=== PATIENT | female | born 1955 | race Two or more races ===

== ENCOUNTER 2024-09-19 06:11 | Inpatient (IN) | payer OTHER, MEDICAID ==
[~2024-09-19] VITALS: Ht 154.9 cm; Wt 73.2 kg
[~2024-09-19 06:11] MED LIST: DAPA1TAB4 PO; FURO40TA4 PO; GLIP10TA9 PO; SEMA4INJ SC; ZOFR4T SL
--- NOTE | 2024-09-19 06:20 | ED.PDOC ---
General HPI Comments 67 year old female presents to the ED via EMS with a chief complaint of dysuria onset 3 days. Patient has been experiencing dysuria, fever, chills, fatigue, generalized weakness for the past 3 days, an episode of nausea/vomiting this morning. Denies any chest pain, shortness of breath, hematuria, hematemesis, dizziness, headache, blurry vision. No other symptoms or modifying factors present at this time. Time Seen by MD: 06:10 Reviewed notes: Medications, Allergies Allergies: Coded Allergies: Tramadol (Verified Allergy, Unknown, 09/19/24) Information Source: Patient, Emergency Med Personnel Severity: Moderate Timing: Days Duration: Since onset Prehospital treatment: None Onset: Spontaneous Symptoms: Dysuria History of: None associated signs and symptoms: Fever, Nausea, Vomiting, Dysuria Past Medical History PAST MEDICAL HISTORY: Denies Surgical History: Denies all surgeries LAUNDRY AIDE History: No Pertinent LAUNDRY AIDE History Social History Smoker: Non-Smoker Alcohol: Denies ETOH Use Drugs: Denies Drug Use Lives In: Home Constitutional: reports: chills, fatigue, fever; denies: diaphoresis, malaise, sweats, weakness, others EENTM: denies: blurred vision, double vision, ear bleeding, ear discharge, ear drainage, ear pain, ear ringing, eye pain, eye redness, hearing loss, mouth pain, mouth swelling, nasal discharge, nose bleeding, nose congestion, nose pain, photophobia, tearing, throat pain, throat swelling, voice changes, others Respiratory: denies: cough, hemoptysis, orthopnea, SOB at rest, shortness of breath, SOB with excertion, stridor, wheezing, others Cardiovascular: denies: chest pain, dizzy spells, diaphoresis, Dyspnea on exertion, edema, irregular heart beat, left arm pain, lightheadedness, palpitations, PND, syncope, others Gastrointestinal: reports: nausea, vomiting; denies: abdomen distended, abdominal pain, blood streaked bowels, constipated, diarrhea, dysphagia, difficulty swallowing, hematemesis, melena, poor appetite, poor fluid intake, rectal bleeding, rectal pain, others Genitourinary: reports: dysuria; denies: abnormal vagina bleeding, burning, dyspareunia, flank pain, frequency, hematuria, incontinence, pain, , vagina discharge, urgency, others Neurological: denies: dizziness, fainting, headache, left sided numbness, left sided weakness, numbness, paresthesia, pre-existing deficit, right sided numbness, right sided weakness, seizure, speech problems, tingling, tremors, weakness, others Musculoskeletal: denies: back pain, gout, joint pain, joint swelling, muscle pain, muscle stiffness, neck pain, others Integumetry: denies: bruises, change in color, change in hair/nails, dryness, laceration, lesions, lumps, rash, wounds, others Allergic/Immunocompromised: denies: Difficulty Healing, Frequent Infections, Hives, Itching, others Hematologic/Lymphatic: denies: anemia, blood clots, easy bleeding, easy bruising, swollen glands, others Endocrine: denies: excessive hunger, excessive sweating, excessive thirst, excessive urination, flushing, intolerance to cold, intolerance to heat, unexplained weight gain, unexplained weight loss, others Psychiatric: denies: anxiety, bipolar disorder, depression, hopeless, panic disorder, schizophrenia, sleepless, suicidal, others All Other Systems: Reviewed and Negative Physical Exam General Appearance: Other (febrile) HEENT: Normal ENT Inspection, Pharynx Normal, TMs Normal Neck: Full Range of Motion, Non-Tender, Normal, Normal Inspection Respiratory: Chest Non-Tender, Lungs Clear, No Accessory Muscle Use, No Respiratory Distress, Normal Breath Sounds Cardiovascular: No Edema, No Gallop, Tachycardia Breast Exam: Deferred Gastrointestinal: No Organomegaly, Non Tender, No Pulsatile Mass, Normal Bowel Sounds, Soft Genitalia: Deferred Pelvic: Deferred Rectal: Deferred Extremities: No calf tenderness, Normal capillary refill, Normal inspection, Normal range of motion, Non-tender, No pedal edema Musculoskeletal : Apperance: Normal Neurologic: Alert, manager lan II-XII nml as Tested, No Motor Deficits, Normal Affect, Normal Mood, No Sensory Deficits Cerebellar Function: Normal Reflexes: Normal Skin: Dry, Normal Color, Warm Lymphatic: No Adenopathy Was a procedure done? Was a procedure done?: No Differential Diagnosis Kidney stone (Female): N/A Kidney stone (Male): N/A Penile/Scrotal: N/A Urinary Problem (Male): N/A Urinary Problem (Female): Pyelonephritis, Urinary retention, Urolithiasis, UTI X-Ray, Labs, Meds, VS Vital Signs Date Time Temp Pulse Resp B/P (MAP) Pulse Ox O2 Delivery O2 Flow Rate FiO2 09/19/24 07:30 98 16 93 Room Air* 0 21 09/19/24 07:30 98.7 98 16 93/60 (71) 93 98.7 09/19/24 06:22 99.0 119 33 143/66 (91) 95 99.0 Lab Test 09/19/24 06:57 Range/Units White Blood Count 2.0 L 4.4-10.8 10^3/uL Red Blood Count 4.52 4.0-5.20 10^6/uL Hemoglobin 13.7 12.2-16.2 g/dL Hematocrit 39.3 36.0-46.0 % Mean Corpuscular Volume 87.0 80.0-100.0 fL Mean Corpuscular Hemoglobin 30.3 28.0-32.0 pg Mean Corpuscular Hemoglobin Concent 34.9 32.0-36.0 g/dL Red Cell Distribution Width 15.0 H 11.8-14.3 % Platelet Count 66 L 140-450 10^3/uL Mean Platelet Volume 9.0 6.9-10.8 fL Neutrophils (%) (Auto) 86.9 H 37.0-80.0 % Lymphocytes (%) (Auto) 8.0 L 10.0-50.0 % Monocytes (%) (Auto) 4.1 0.0-12.0 % Eosinophils (%) (Auto) 0.5 0.0-7.0 % Basophils (%) (Auto) 0.5 0.0-2.0 % Neutrophils # (Auto) 1.7 1.6-8.6 10 ^3/uL Lymphocytes # (Auto) 0.2 L 0.4-5.4 10 ^3/uL Monocytes # (Auto) 0.1 0-1.3 10 ^3/uL Eosinophils # (Auto) 0 0-0.8 10 ^3/uL Basophils # (Auto) 0 0-0.2 10 ^3/uL Nucleated Red Blood Cells 0.2 % Prothrombin Time 11.4 9.3-11.8 sec Prothrombin Time INR 1.08 0.9-1.15 Activated Partial Thromboplast Time 23.8 L 24.5-34.5 SEC Sodium Level 139 136-145 mmol/L Potassium Level 3.6 3.5-5.1 mmol/L Chloride Level 106 98-107 mmol/L Carbon Dioxide Level 20 20-31 mmol/L Anion Gap 13 5-15 Blood Urea Nitrogen 21 9-23 mg/dL Creatinine 1.73 H 0.550-1.02 mg/dL Glomerular Filtration Rate Calc 32 >90 mL/min BUN/Creatinine Ratio 12.1 10.0-20.0 Serum Glucose 169 H 74-106 mg/dL Lactic Acid Level 2.2 *H 0.4-2.0 mmol/L Calcium Level 9.2 8.7-10.4 mg/dL Total Bilirubin 1.9 H 0.2-1.0 mg/dL Aspartate Amino Transferase (AST) 31 <34 U/L Alanine Aminotransferase (ALT) 31 7-40 U/L Alkaline Phosphatase 101 46-116 U/L Total Protein 7.0 5.7-8.2 g/dL Albumin 4.2 3.2-4.8 g/dL Current Medications Medications (Trade) Dose Ordered Sig/Triston Route Start Time Stop Time Status Last Admin Vancomycin HCl 200 ml @ 200 mls/hr ONCE ONCE IV 09/19/24 06:15 09/19/24 07:14 DC 09/19/24 08:18 Cefepime HCl 50 ml @ 12.5 mls/hr NOW IV 09/19/24 06:15 09/19/24 08:08 Lactated Ringer's 2,000 ml @ 1,000 mls/hr Q2H ONCE IV 09/19/24 06:15 09/19/24 08:14 DC 09/19/24 08:19 Lactated Ringer's 1,000 ml @ 1,000 mls/hr Q1H ONCE IV 09/19/24 08:45 09/19/24 09:44 09/19/24 08:42 [place] [id number] Ph: [phone] DIAGNOSTIC IMAGING Diagnostic Imaging Report : [id number] Signed PATIENT: AMY CABRALES ACCT: [id number] UNIT: [id number] : 1955 LOC: ER ROOM / BED: / AGE / SEX: 68 / F ADM STATUS: REG ER SERVICE 0638 ORDERING PHYSICIAN: ALEXANDRE BOJORQUEZ MD PROCEDURE(s): CXRP - CHEST PORTABLE REASON: fever ORDER NUMBER(s): [id number], ACCESSION NUMBER(s): [id number] CHEST RADIOGRAPH Indication: Fever Technique: Single frontal view of the chest was obtained Comparison: None FINDINGS: Lines and Tubes: None Lungs: No focal consolidation. Pleura: No effusion. No pneumothorax. Cardiomediastinal contours: Unremarkable Bones: No acute osseous abnormality. IMPRESSION: 1. No acute cardiopulmonary disease. ATED BY: GENEVIEVE HERRERA MD DICTATED DATE/TIME: 09/19/24703 SIGNED BY: GENEVIEVE HERRERA MD SIGNED DATE/TIME: 09/19/24703 CC: Time of 1ST Reevaluation: 06:40 Reevaluation 1ST: Unchanged Time of 2ND Reevaluation: 08:59 (After receiving fluids the patient is a vitals have began to improve. We will reassess after completion.) Patient Education/Counseling: Diagnosis, Treatment, Prognosis Family Education/Counseling: No Family Present SEPSIS Sepsis Screen Physician Orders Urinalysis (09/19/24 06:12) Chest Portable (09/19/24 06:38) Accucheck (09/19/24 06:12) Blood Culture (09/19/24 06:12) Cefepime 1gm/ 50ml (Maxipime 1gm/50ml) (09/19/24 06:15) Notify Md If Map <65 Or Bp<90 (09/19/24 06:12) If Map<65 Start Vasopressor (09/19/24 06:12) Lactated Ringer's (09/19/24 08:45) Straightcath If Unable To Void (09/19/24 08:56) Vital Signs Date Time Temp Pulse Resp B/P (MAP) Pulse Ox O2 Delivery O2 Flow Rate FiO2 09/19/24 07:30 98 16 93 Room Air* 0 21 09/19/24 07:30 98.7 98 16 93/60 (71) 93 98.7 09/19/24 06:22 99.0 119 33 143/66 (91) 95 99.0 Laboratory Tests Test 09/19/24 06:57 Lactic Acid Level 2.2 mmol/L (0.4-2.0) *H White Blood Count 2.0 10^3/uL (4.4-10.8) L Medications Medications Dose Ordered Sig/Triston Route Start Time Stop Time Status Last Admin Dose Admin Cefepime HCl 50 ml @ 12.5 mls/hr NOW IV 09/19/24 06:15 09/19/24 08:08 Lactated Ringer's 1,000 ml @ 1,000 mls/hr Q1H ONCE IV 09/19/24 08:45 09/19/24 09:44 09/19/24 08:42 Lactated Ringer's 2,000 ml @ 1,000 mls/hr Q2H ONCE IV 09/19/24 06:15 09/19/24 08:14 DC 09/19/24 08:19 Vancomycin HCl 200 ml @ 200 mls/hr ONCE ONCE IV 09/19/24 06:15 09/19/24 07:14 DC 09/19/24 08:18 Departure 1 Departure Time of Disposition: 08:57 (Patient presents with concern for sepsis. We will empirically cover patient with antibiotics fluids and the patient for further workup and expert consultation.) Impression: Primary Impression: Sepsis Qualified Codes: A41.9 - Sepsis, unspecified organism; R65.20 - Severe sepsis without septic shock; G72.81 - Critical illness myopathy Additional Impression: Generalized weakness Disposition: 09 ADMITTED INPATIENT Admit to: Med Surg Condition: Guarded Critical Care Note Critical Care Time?: Yes Critical care comment: Concern for sepsis Authorized and Performed by: Alexandre Bojorquez MD Total critical care time: Approximately 44 minutes Due to a high probability of clinically significant, life threatening deterioration, the patient required my highest level of preparedness to intervene emergently and I personally spent this critical care time directly and personally managing the patient. This critical care time included obtaining a history; examining the patient; pulse oximetry; ordering and review of studies; arranging urgent treatment with development of a management plan; evaluation of patient's response to treatment; frequent reassessment; and, discussions with other providers. This critical care time was performed to assess and manage the high probability of imminent, life-threatening deterioration that could result in multi-organ failure. It was exclusive of separately billable procedures and treating other patients and teaching time. Please see my other sections and the rest of the note for further information on patient assessment and treatment. Stability Stability form required: No I personally scribed for ALEXANDRE BOJORQUEZ MD ([email or web address]) on 09/19/24 at 06:20. Electronically submitted by Jemma Narvaez ([email or web address]). I personally scribed for ALEXANDRE BOJORQUEZ MD ([email or web address]) on 09/19/24 at 07:21. E lectronically submitted by Jemma Narvaez ([email or web address]). ALEXANDRE BOJORQUEZ MD Sep 19, 2024 06:20
--- NOTE | 2024-09-19 07:07 | DVH ---
CHEST RADIOGRAPH Indication: Fever Technique: Single frontal view of the chest was obtained Comparison: None FINDINGS: Lines and Tubes: None Lungs: No focal consolidation. Pleura: No effusion. No pneumothorax. Cardiomediastinal contours: Unremarkable Bones: No acute osseous abnormality. IMPRESSION: 1. No acute cardiopulmonary disease.
[2024-09-19 07:15] LABS: Basophils # (auto) 0 10 ^3/uL (0-0.2); Basophils % (auto) 0.5 % (0.0-2.0); Eosinophils # (auto) 0 10 ^3/uL (0-0.8); Eosinophils % (auto) 0.5 % (0.0-7.0); Hematocrit 39.3 % (36.0-46.0); Hemoglobin 13.7 g/dL (12.2-16.2); Lymphocytes # (auto) 0.2 10 ^3/uL (0.4-5.4); Mean Corpuscular Hemoglobin 30.3 pg (28.0-32.0); Mean Corpuscular Hgb Conc. 34.9 g/dL (32.0-36.0); Monocytes # (auto) 0.1 10 ^3/uL (0-1.3); Monocytes % (auto) 4.1 % (0.0-12.0); Neutrophils # (auto) 1.7 10 ^3/uL (1.6-8.6); Neutrophils % (auto) 86.9 % (37.0-80.0); Nucleated Red Blood Cells % 0.2 %; Platelet Count (auto) 66 10^3/uL (140-450); Red Blood Cells 4.52 10^6/uL (4.0-5.20)
[2024-09-19 07:29] LABS: INR 1.08 (0.9-1.15); Partial Thromboplastin Time 23.8 SEC (24.5-34.5); Prothrombin Time 11.4 sec (9.3-11.8)
[2024-09-19 07:30] VITALS: PULSE 98; RESP 16; O2SAT 93
[2024-09-19 07:32] LABS: Alanine Aminotransferase 31 U/L (7-40); Albumin 4.2 g/dL (3.2-4.8); Alkaline Phosphatase 101 U/L (46-116); Anion Gap 13 (5-15); Aspartate Aminotransferase 31 U/L (<34); BUN/Creatinine Ratio 12.1 (10.0-20.0); Blood Urea Nitrogen 21 mg/dL (9-23); Calcium 9.2 mg/dL (8.7-10.4); Carbon Dioxide 20 mmol/L (20-31); Chloride 106 mmol/L (98-107); Potassium 3.6 mmol/L (3.5-5.1); Sodium 139 mmol/L (136-145)
[2024-09-19 07:39] LABS: Bilirubin, Total 1.9 mg/dL (0.2-1.0); Glucose 169 mg/dL (74-106)
[2024-09-19 07:42] LABS: Lactic Acid w/Reflex 2.2 mmol/L (0.4-2.0)
[2024-09-19] MEDS: CEFEPIME 1GM/ 50ML 50 ML IV SCH ×2 (08:08→22:25)
[2024-09-19] MEDS: VANCOMYCIN 1GM/200ML PM 200 ML IV ONE (08:18)
[2024-09-19] MEDS: LACTATED RINGER'S 2,000 ML IV ONE (08:19)
[2024-09-19] MEDS ORDERED: SODIUM CHLORIDE 0.9% 1,000 ML IV ONE (08:30)
[2024-09-19] MEDS: LACTATED RINGER'S 1,000 ML IV ONE (08:42)
[2024-09-19 10:15] LABS: Urine Bacteria None Seen /hpf (None Seen)
[2024-09-19 10:24] LABS: Urine Blood 3+ /uL (Negative); Urine Clarity Ex.Turbid (Clear); Urine Color Light-Orange (Yellow); Urine Protein, UAD 2+ (Negative); Urine Specific Gravity 1.014 (1.001-1.035); Urine Squamous Epithelial Cell None Seen /hpf (<5); Urine Urobilinogen Normal (Negative); Urine WBC 1841 /HPF (0-5); Urine WBC Clumps PRESENT /hpf (None Seen)
[2024-09-19] MEDS ORDERED: MORPHINE SULFATE INJ 2 MG/ml SYRG IV PRN (12:15)
[2024-09-19] MEDS ORDERED: HYDROcodone-ACET 5/325MG TAB PO PRN (12:15)
[2024-09-19] MEDS ORDERED: ONDANSETRON HCL 4 MG/2 ML VIAL IV PRN (12:15)
[2024-09-19] MEDS ORDERED: NITROGLYCERIN 0.4 MG SL TAB SL PRN (12:15)
[2024-09-19] MEDS ORDERED: VANCOMYCIN PER PHARMACY 0 MG IV SCH (12:15)
[2024-09-19] MEDS ORDERED: FOLI-119 PO (12:19)
[2024-09-19] MEDS ORDERED: LISI20TA56 PO (12:19)
[2024-09-19] MEDS ORDERED: MAGN241.6 PO (12:19)
--- NOTE | 2024-09-19 12:32 | DVHHP2 ---
History of Present Illness Reason for Visit: Dysuria History of Present Illness Beata Márquez is a 68-year-old female with past medical history of hypertension, diabetes, breast cancer status post right mastectomy in 2010, and C-sections x4 who presents to the ED with dysuria, generalized weakness, fever, chills, fatigue, and flu-like symptoms x3 days. Patient states that she ambulated to the room just a little bit ago. She also denies nausea and vom iting as well as cough. Patient states that she lives at home with her daughter as well as smokes 1 cigarette per week, denies use of drugs or drinking alcohol. Patient denies any recent trauma or injury, recent sick contacts, recent travels, recent ingestion of spoiled food, abdominal pain, nausea, vomiting, diarrhea, chest pain, shortness of breath, lightheadedness, dizziness, h ematemesis, melena, hematuria, or hematochezia. Cardiovascular: HTN Endocrine: Diabetes Past Medical History Breast cancer Past Surgical History: Mastectomy (Right ) Family History: None Smoke: <1 pack per day ALCOHOL: none Drugs: None Lives: with Family Domestic Violence: Neg Review of Systems Constitutional: Yes: Fever, Chills, Other (Fatigue) Genitourinary: Dysuria Allergies: Coded Allergies: Tramadol (Verified Allergy, Unknown, 09/19/24) Medications Current Medications Medications Dose Ordered Sig/Triston Route Start Time Stop Time Status Last Admin Dose Admin Cefepime HCl 50 ml @ 12.5 mls/hr NOW IV 09/19/24 06:15 09/19/24 08:08 12.5 MLS/HR Acetaminophen/ Hydrocodone Bitart 1 tab Q4HP PRN PO 09/19/24 12:15 UNV Exam Vital Signs Vital Signs Date Time Temp Pulse Resp B/P (MAP) Pulse Ox O2 Delivery O2 Flow Rate FiO2 09/19/24 07:30 98 16 93 Room Air* 0 21 09/19/24 07:30 98.7 93/60 (71) 98.7 General Appearance: Alert, Oriented X3, Cooperative, No acute distress HEENT: Atraumatic, PERRLA, EOMI, Mucous membr. moist/pink Respiratory: Clear to auscultation, Normal air movement Cardiovascular: Normal S1, Normal S2 Abdominal: Normal bowel sounds, Soft Extremities: No clubbing, No cyanosis, No edema, Normal pulses Skin: No significant lesion Neuro: Normal speech, Strength at 5/5 X4 ext, Normal tone, Sensation intact Psych/Mental Status: Mental status NL, Mood NL Labs/Xrays Labs Test 09/19/24 10:15 09/19/24 10:00 09/19/24 06:57 Range/Units Lactic Acid Level 1.3 0.4-2.0 mmol/L Urine Color Light-orange Yellow Urine Clarity Ex.turbid Clear Urine pH 6.0 5.0-9.0 Urine Specific [place] 1.014 1.001-1.035 Urine Protein 2+ H Negative Urine Ketones Negative Negative Urine Blood 3+ H Negative /uL Urine Nitrite 1+ H Negative Urine Bilirubin Negative Negative Urine Urobilinogen Normal Negative mg/dL Urine Leukocyte Esterase 3+ Negative /uL Urine RBC 50 0 - 4 /hpf Urine WBC Clumps Present None Seen /hpf Urine Microscopic WBC 1841 H 0-5 /HPF Urine Squamous Epithelial Cells None seen <5 /hpf Urine Bacteria None seen None Seen /hpf Urine Glucose 3+ H Normal mg/dL White Blood Count 2.0 L 4.4-10.8 10^3/uL Red Blood Count 4.52 4.0-5.20 10^6/uL Hemoglobin 13.7 12.2-16.2 g/dL Hematocrit 39.3 36.0-46.0 % Mean Corpuscular Volume 87.0 80.0-100.0 fL Mean Corpuscular Hemoglobin 30.3 28.0-32.0 pg Mean Corpuscular Hemoglobin Concent 34.9 32.0-36.0 g/dL Red Cell Distribution Width 15.0 H 11.8-14.3 % Platelet Count 66 L 140-450 10^3/uL Mean Platelet Volume 9.0 6.9-10.8 fL Neutrophils (%) (Auto) 86.9 H 37.0-80.0 % Lymphocytes (%) (Auto) 8.0 L 10.0-50.0 % Monocytes (%) (Auto) 4.1 0.0-12.0 % Eosinophils (%) (Auto) 0.5 0.0-7.0 % Basophils (%) (Auto) 0.5 0.0-2.0 % Neutrophils # (Auto) 1.7 1.6-8.6 10 ^3/uL Lymphocytes # (Auto) 0.2 L 0.4-5.4 10 ^3/uL Monocytes # (Auto) 0.1 0-1.3 10 ^3/uL Eosinophils # (Auto) 0 0-0.8 10 ^3/uL Basophils # (Auto) 0 0-0.2 10 ^3/uL Nucleated Red Blood Cells 0.2 % Prothrombin Time 11.4 9.3-11.8 sec Prothrombin Time INR 1.08 0.9-1.15 Activated Partial Thromboplast Time 23.8 L 24.5-34.5 SEC Sodium Level 139 136-145 mmol/L Potassium Level 3.6 3.5-5.1 mmol/L Chloride Level 106 98-107 mmol/L Carbon Dioxide Level 20 20-31 mmol/L Anion Gap 13 5-15 Blood Urea Nitrogen 21 9-23 mg/dL Creatinine 1.73 H 0.550-1.02 mg/dL Glomerular Filtration Rate Calc 32 >90 mL/min BUN/Creatinine Ratio 12.1 10.0-20.0 Serum Glucose 169 H 74-106 mg/dL Calcium Level 9.2 8.7-10.4 mg/dL Total Bilirubin 1.9 H 0.2-1.0 mg/dL Aspartate Amino Transferase (AST) 31 <34 U/L Alanine Aminotransferase (ALT) 31 7-40 U/L Alkaline Phosphatase 101 46-116 U/L Total Protein 7.0 5.7-8.2 g/dL Albumin 4.2 3.2-4.8 g/dL CHEST RADIOGRAPH Indication: Fever Technique: Single frontal view of the chest was obtained Comparison: None FINDINGS: Lines and Tubes: None Lungs: No focal consolidation. Pleura: No effusion. No pneumothorax. Cardiomediastinal contours: Unremarkable Bones: No acute osseous abnormality. IMPRESSION: 1. No acute cardiopulmonary disease. Assessment/Plan Assessment/Plan Assessment Dysuria with fever and chills likely due to UTI rule out sepsis Hypertension Leukopenia Thrombocytopenia Hyperbilirubinemia SANIA Diabetes type 2 Tobacco use History of breast cancer status post right mastectomy [facility] [address] [facility] History of C-sections x4 Plan Admit to [facility] IV antibiotics-vancomycin + cefepime LR 3 L given ED Blood cultures Chest x-ray noted UA PT/PTT Urine bacterial culture Antipyretics Antiemetics Pain management Hemoglobin A1c ISS and Accu-Cheks Influenza test Diet Home medications reconciled DVT prophylaxis-SCDs PUD prophylaxis-not indicated no history of GERD or GI bleed Discussed plan of care with patient and nurse Counseled patient on cessation of tobacco use Plan discussed with: Patient My Orders Orders - ALEN BLOOM Procedure Category Date Status Time Admit ADMIT 09/19/24 Transmitted 12:12 Allergies JAIRO 09/19/24 In Process 12:12 Code Status CODE 09/19/24 Transmitted 12:12 Hydrocodone-Acet PHA 09/19/24 Logged 5/325mg Tab (Badger 12:15 Ondansetron Hcl PHA 09/19/24 Logged (Zofran) 12:15 Complete Blood Count LAB 09/20/24 Verified 04:00 Comprehensive LAB 09/20/24 Verified Metabolic Panel 04:00 Cardiac DIET 09/19/24 Transmitted Diet-2gna,Lofat,Lochol Lunch Acetaminophen Tablet PHA 09/19/24 Logged (Tylenol Tablet) 12:15 Sequential JAIRO 09/19/24 In Process Compression Device Nitroglycerin PHA 09/19/24 Logged Sublingual (Ntrostat 12:15 Morphine Sulfate PHA 09/19/24 Logged Injection 12:15 Stat Ekg For Chest [facility] [place] 09/19/24 In Process Pain 12:12 Notify Md Of Changes [facility] [place] 09/19/24 In Process From Base 12:12 Marketing Teacher For [facility] [place] 09/19/24 In Process 24 Hours 12:12 Emergency Dysrhythmia [facility] [place] 09/19/24 In Process Protocol 12:12 Rhythm Strips Once [facility] [place] 09/19/24 In Process Every Shift 12:12 Oxygen By Nasal RT 09/19/24 Transmitted Cannula 12:12 Vancomycin Per PHA 09/19/24 Logged Pharmacy 12:15 Cefepime 1gm/ 50ml PHA 09/19/24 Logged (Maxipime 1gm/50ml) 14:00 Rapid Influenza A&B LAB 09/19/24 Transmitted 12:12 (Nf) Folic Acid PHA 09/20/24 Transmitted 10:00 (Nf) Magnesium Oxide PHA 09/20/24 Transmitted (Mg Supplement (Mag 10:00 Furosemide Injection PHA 09/20/24 Verified (Lasix Injection) 10:00 Date of Service: Sep 19, 2024 Billing Provider: ALEN BLOOM Common Visit Codes: [id number] INP/OBS CARE (HIGH) ALEN BLOOM Sep 19, 2024 12:32
[2024-09-19 14:48] LABS: Rapid Influenza A Negative (Negative); Rapid Influenza B Negative (Negative)
[2024-09-19 15:18] VITALS: BP 93/49; PULSE 89; RESP 19; TEMP 98.4; O2SAT 93
[2024-09-19 16:21] VITALS: RESP 18; O2SAT 98
[2024-09-19 20:00] VITALS: PULSE 83; RESP 18; O2SAT 97
[2024-09-19 21:00] VITALS: BP 105/58; PULSE 83; RESP 17; TEMP 97.7; O2SAT 97
[2024-09-20] VITALS (7 sets, daily range): BP systolic 102–110; BP diastolic 52–61; PULSE 76–84; RESP 16–19; TEMP 97.4–98.3; O2SAT 93–98
[2024-09-20] MEDS: ACETAMINOPHEN 325 MG TAB PO PRN (01:11)
[2024-09-20 06:05] LABS: Basophils # (auto) 0 10 ^3/uL (0-0.2); Hemoglobin 12.2 g/dL (12.2-16.2); Lymphocytes # (auto) 0.8 10 ^3/uL (0.4-5.4); Monocytes # (auto) 0.7 10 ^3/uL (0-1.3); Nucleated Red Blood Cells % 0.1 %
[2024-09-20 06:11] LABS: Basophils % (auto) 0.4 % (0.0-2.0); Eosinophils # (auto) 0.1 10 ^3/uL (0-0.8); Eosinophils % (auto) 1.3 % (0.0-7.0); Lymphocytes % (auto) 13.7 % (10.0-50.0); Mean Corpuscular Hemoglobin 30.1 pg (28.0-32.0); Mean Corpuscular Hgb Conc. 34.8 g/dL (32.0-36.0); Mean Corpuscular Volume 86.5 fL (80.0-100.0); Monocytes % (auto) 11.4 % (0.0-12.0); Neutrophils # (auto) 4.4 10 ^3/uL (1.6-8.6); Neutrophils % (auto) 73.2 % (37.0-80.0); Platelet Count (auto) 55 10^3/uL (140-450); Red Blood Cells 4.04 10^6/uL (4.0-5.20); Red Cell Distribution Width 14.6 % (11.8-14.3); White Blood Cell 6.1 10^3/uL (4.4-10.8)
[2024-09-20 06:19] LABS: Alanine Aminotransferase 23 U/L (7-40); Alkaline Phosphatase 78 U/L (46-116); Anion Gap 11 (5-15); BUN/Creatinine Ratio 16.3 (10.0-20.0); Calcium 9.1 mg/dL (8.7-10.4); Carbon Dioxide 22 mmol/L (20-31); Sodium 140 mmol/L (136-145); Total Protein 6.1 g/dL (5.7-8.2)
[2024-09-20 06:20] LABS: Albumin 3.7 g/dL (3.2-4.8); Aspartate Aminotransferase 25 U/L (<34)
[2024-09-20 06:24] LABS: Bilirubin, Total 1.3 mg/dL (0.2-1.0); Blood Urea Nitrogen 26 mg/dL (9-23); Chloride 107 mmol/L (98-107); Glucose 129 mg/dL (74-106)
[2024-09-20] MEDS ORDERED: SODIUM CHLORIDE 0.9% 1,000 ML IV ONE (09:30)
[2024-09-20] MEDS: MAGNESIUM OXIDE 400 MG TAB PO SCH (10:17)
[2024-09-20] MEDS: SODIUM CHLORIDE 0.9% 1,000 ML IV ONE (10:17)
[2024-09-20] MEDS: FOLIC ACID 1 MG TAB PO SCH (10:17)
[2024-09-20] MEDS: FUROSEMIDE 40 MG/4 ML VIAL IV SCH (12:03)
--- NOTE | 2024-09-20 12:06 | DVHPNRES ---
Progress Note Date Seen: Sep 20, 2024 Resident Creating Document: JEFFREY GARY RESIDENT Has the PT tested + for MRSA If YES, has PT been informed?: No Medical Necessity Reason Pt with a Central, PICC or Fol: No Subjective Review of Systems Beata Márquez is a 68-year-old female with past medical history of hypertension, diabetes, breast cancer status post right mastectomy in 2010, and C-sections x4 who presents to the ED with dysuria, generalized weakness, fever, chills, fatigue, and flu-like symptoms x3 days. Patient states that she ambulated to the room just a little bit ago. She also denies nausea and vomiting as well as cough. Patient states that she lives at home with her daughter as well as smokes 1 cigarette per week, denies use of drugs or drinking alcohol. Patient denies any recent trauma or injury, recent sick contacts, recent travels, recent ingestion of spoiled food, abdominal pain, nausea, vomiting, diarrhea, chest pain, shortness of breath, lightheadedness, dizziness, hematemesis, melena, hematuria, or hematochezia. 09/20/2024: UA: LE 3+, WBC 1841, 1+ nitrates, creat 1.6, abdominal pain improves, no fevers, AB will be downgraded to ceftriaxone, vanco + cefepime will be dc, 1 extra LT of fluids given Objective vital signs Vital Sign Date Time Temp Pulse Resp B/P (MAP) Pulse Ox O2 Delivery O2 Flow Rate FiO2 09/20/24 12:03 102/55 09/20/24 08:02 83 18 97 Room Air* 0 21 09/20/24 05:00 98.3 98.3 Total Intake and Output 09/19/24 09/19/24 09/20/24 15:00 23:00 07:00 Intake Total 2250 ml 480 ml 700 ml Balance 2250 ml 480 ml 700 ml medications Current Medications Medications Dose Ordered Sig/Triston Route Start Time Stop Time Status Last Admin Dose Admin Cefepime HCl 50 ml @ 12.5 mls/hr NOW IV 09/19/24 06:15 09/19/24 08:08 12.5 MLS/HR Acetaminophen/ Hydrocodone Bitart 1 tab Q4HP PRN PO 09/19/24 12:15 Ondansetron HCl 4 mg Q4HP PRN IV 09/19/24 12:15 Acetaminophen 650 mg Q6HP PRN PO 09/19/24 12:15 09/20/24 01:11 650 MG Nitroglycerin 0.4 mg Q5MINP PRN SL 09/19/24 12:15 Morphine Sulfate 2 mg Q30M PRN IV 09/19/24 12:15 Vancomycin HCl 0 ml @ 0 mls/hr UD IV 09/19/24 12:15 Cefepime HCl 50 ml @ 12.5 mls/hr Q12HR IV 09/19/24 22:00 09/20/24 10:17 12.5 MLS/HR Folic Acid 1 mg DAILY PO 09/20/24 10:00 09/20/24 10:17 1 MG Magnesium Oxide 400 mg DAILY PO 09/20/24 10:00 09/20/24 10:17 400 MG Furosemide 40 mg DAILY IV 09/20/24 10:00 09/20/24 12:03 40 MG Examination General Appearance: Alert, Oriented X3, Cooperative, No acute distress HEENT: Atraumatic, PERRLA, EOMI, Mucous membr. moist/pink Respiratory: Clear to auscultation, Normal air movement Cardiovascular: Normal S1, Normal S2 Abdominal: Normal bowel sounds, Soft Extremities: No clubbing, No cyanosis, No edema, Normal pulses Skin: No significant lesion Neuro: Normal speech, Strength at 5/5 X4 ext, Normal tone, Sensation intact Psych/Mental Status: Mental status NL, Mood NL laboratory and microbiology Laboratory Tests 09/20/24 05:12 Test 09/20/24 05:12 Range/Units Serum Glucose 129 H 74-106 mg/dL Microbiology Date/Time Source Procedure Growth Status 09/19/24 06:57 Blood Blood Culture - Preliminary Resulted Problem List/Assessment/Plan Problem List/Assessment/Plan #Sepsis due to complicated UTI #Hypertension #Leukopenia, resolved: possible due to sepsis #Thrombocytopenia #Hyperbilirubinemia, resolving #SANIA due to VMN #Diabetes type 2 #Tobacco use #History of breast cancer status post right mastectomy in 2010 at [facility] #History of C-sections x4 Plan Cardiac diet IV ceftriaxone IV fluids given Blood cultures pending Chest x-ray normal UA: UTI Urine bacterial culture: pending Tylenol Hemoglobin A1c ISS and Accu-Cheks Influenza test Home medications reconciled DVT prophylaxis-SCDs, no lovenox due to Thrombocytopenia PUD prophylaxis-not indicated no history of GERD or GI bleed Discussed plan of care with patient and nurse Counseled patient on cessation of tobacco use Case discussed with Dr Bass Plan discussed with: Patient, Other Date of Service: Sep 20, 2024 Billing Provider: ELMER BASS MD Common Visit Codes: [id number] INP/OBS CARE(HIGH) JEFFREY GARY RESIDENT Sep 20, 2024 12:06 ELMER BASS MD Sep 30, 2024 20:44
[2024-09-20] MEDS ORDERED: DEXTROSE (50%) 50ML SYRG IV PRN (15:15)
[2024-09-20] MEDS: cefTRIAXone 1GM/50ML D5W 50 ML IV SCH (16:16)
[2024-09-20] MEDS ORDERED: InsuLIN REG 1unit/0.01ml Soln (100units/ml) SC SCH (17:00)
[2024-09-20] MEDS ORDERED: ACCU-CHEK COMFORT CURVE STRIP VI SCH (17:00)
[2024-09-21] VITALS (7 sets, daily range): BP systolic 119–134; BP diastolic 60–78; PULSE 76–83; RESP 16–19; TEMP 96.2–100; O2SAT 95–99
[2024-09-21 07:43] LABS: Basophils # (auto) 0 10 ^3/uL (0-0.2); Basophils % (auto) 0.4 % (0.0-2.0); Eosinophils # (auto) 0 10 ^3/uL (0-0.8); Eosinophils % (auto) 0.8 % (0.0-7.0); Hematocrit 36.5 % (36.0-46.0); Hemoglobin 12.5 g/dL (12.2-16.2); Lymphocytes # (auto) 0.7 10 ^3/uL (0.4-5.4); Lymphocytes % (auto) 14.2 % (10.0-50.0); Mean Corpuscular Hemoglobin 29.7 pg (28.0-32.0); Mean Corpuscular Hgb Conc. 34.2 g/dL (32.0-36.0); Mean Corpuscular Volume 86.9 fL (80.0-100.0); Monocytes # (auto) 0.4 10 ^3/uL (0-1.3); Monocytes % (auto) 8.4 % (0.0-12.0); Neutrophils # (auto) 3.9 10 ^3/uL (1.6-8.6); Neutrophils % (auto) 76.2 % (37.0-80.0); Nucleated Red Blood Cells % 0.1 %; Platelet Count (auto) 59 10^3/uL (140-450); Red Cell Distribution Width 14.6 % (11.8-14.3); White Blood Cell 5.1 10^3/uL (4.4-10.8)
[2024-09-21 08:00] LABS: Potassium 3.7 mmol/L (3.5-5.1); Sodium 144 mmol/L (136-145)
[2024-09-21 08:01] LABS: Anion Gap 12 (5-15); Carbon Dioxide 22 mmol/L (20-31)
[2024-09-21 08:05] LABS: Chloride 110 mmol/L (98-107)
[2024-09-21 08:06] LABS: BUN/Creatinine Ratio 16.2 (10.0-20.0); Blood Urea Nitrogen 22 mg/dL (9-23)
[2024-09-21 08:09] LABS: Glucose 135 mg/dL (74-106)
--- NOTE | 2024-09-21 11:39 | DVHPNRES ---
Progress Note Date Seen: Sep 21, 2024 Resident Creating Document: RICHY AGOSTO JOSLYN Has the PT tested + for MRSA If YES, has PT been informed?: No Medical Necessity Reason Pt with a Central, PICC or Fol: No Subjective Review of Systems Patient seen and examined at the bedside. Patient is feeling better since admission, does not active complaint including abdominal pain, urgency or frequency. Patient reports: No new complaints, Feels better Changes from previous H/P or p: Changes Objective vital signs Vital Sign Date Time Temp Pulse Resp B/P (MAP) Pulse Ox O2 Delivery O2 Flow Rate FiO2 09/21/24 09:33 119/67 09/21/24 09:00 100.0 77 18 97 100.0 09/21/24 08:09 Room Air* 0 21 Total Intake and Output 09/20/24 09/20/24 09/21/24 15:00 23:00 07:00 Intake Total 750 ml 700 ml Balance 750 ml 700 ml medications Current Medications Medications Dose Ordered Sig/Triston Route Start Time Stop Time Status Last Admin Dose Admin Acetaminophen/ Hydrocodone Bitart 1 tab Q4HP PRN PO 09/19/24 12:15 Acetaminophen 650 mg Q6HP PRN PO 09/19/24 12:15 09/21/24 00:37 650 MG Folic Acid 1 mg DAILY PO 09/20/24 10:00 09/21/24 09:33 1 MG Magnesium Oxide 400 mg DAILY PO 09/20/24 10:00 09/21/24 09:34 400 MG Furosemide 40 mg DAILY IV 09/20/24 10:00 09/21/24 09:33 40 MG Ceftriaxone Sodium 50 ml @ 100 mls/hr DAILY@09 IV 09/20/24 15:15 09/21/24 09:15 100 MLS/HR Examination General Appearance: Alert, Oriented X3, Cooperative, No acute distress HEENT: Atraumatic, PERRLA, EOMI, Mucous membrane moist/pink Respiratory: Clear to auscultation, Normal air movement Cardiovascular: Regular rate, Normal S1, Normal S2, No murmurs, no chest wall tenderness Abdominal: Normal bowel sounds, Soft, No tenderness, No hepatospenomegaly, No masses Extremities: No clubbing, No cyanosis, No edema, Normal pulses, No tenderness/swelling Skin: No rashes, No breakdown, No significant lesion Neuro: Normal gait, Normal speech, Strength at 5/5 X4 ext, Normal tone, Sensation intact, Cranial nerves 3-12 NL, Reflexes 2+ Psych/Mental Status: Mental status NL, Mood NL laboratory and microbiology Laboratory Tests 09/21/24 07:16 Test 09/21/24 07:16 Range/Units Serum Glucose 135 H 74-106 mg/dL Microbiology Date/Time Source Procedure Growth Status 09/19/24 10:00 Voided Urine Urine Culture - Preliminary Resulted 09/19/24 06:57 Blood Blood Culture - Preliminary Resulted Labs and/or images reviewed: Labs reviewed by me, Image(s) reviewed by me Problem List/Assessment/Plan Problem List/Assessment/Plan #Sepsis due to complicated UTI #Hypertension #Leukopenia, resolved: possible due to sepsis #Thrombocytopenia #Hyperbilirubinemia, resolving #SANIA due to VMN #Diabetes type 2 #Tobacco use #History of breast cancer status post right mastectomy in 2010 at [facility] #History of C-sections x4 Plan Cardiac diet IV ceftriaxone IV fluids given Blood cultures pending Chest x-ray normal UA: UTI Urine bacterial culture: pending Tylenol Hemoglobin A1c ISS and Accu-Cheks Influenza test Home medications reconciled DVT prophylaxis-SCDs, no lovenox due to Thrombocytopenia PUD prophylaxis-not indicated no history of GERD or GI bleed Discussed plan of care with patient and nurse Counseled patient on cessation of tobacco use Blood culture preliminary result shows Gram-negative rods, we are repeating blood culture to get negative blood culture before discharge Case discussed with Dr Bass Plan discussed with: Patient, Other (RN) Date of Service: Sep 21, 2024 Billing Provider: ELMER BASS MD Common Visit Codes: [id number] INP/OBS CARE(HIGH) MARYDEBBIEONELIAYISSELFRANSISCA RESDIENT Sep 21, 2024 11:39 ELMER BASS MD Sep 30, 2024 20:50
[2024-09-22] VITALS (8 sets, daily range): BP systolic 109–136; BP diastolic 60–82; PULSE 75–88; RESP 17–20; TEMP 96.8–99; O2SAT 96–98
[2024-09-22 06:42] LABS: Basophils # (auto) 0 10 ^3/uL (0-0.2); Basophils % (auto) 0.3 % (0.0-2.0); Eosinophils # (auto) 0 10 ^3/uL (0-0.8); Eosinophils % (auto) 0.6 % (0.0-7.0); Hematocrit 34.7 % (36.0-46.0); Hemoglobin 12.2 g/dL (12.2-16.2); Lymphocytes # (auto) 0.6 10 ^3/uL (0.4-5.4); Mean Corpuscular Hemoglobin 30.1 pg (28.0-32.0); Mean Corpuscular Hgb Conc. 35.1 g/dL (32.0-36.0); Mean Corpuscular Volume 85.8 fL (80.0-100.0); Monocytes # (auto) 0.3 10 ^3/uL (0-1.3); Monocytes % (auto) 8.3 % (0.0-12.0); Neutrophils % (auto) 74.8 % (37.0-80.0); Platelet Count (auto) 65 10^3/uL (140-450); Red Blood Cells 4.04 10^6/uL (4.0-5.20); Red Cell Distribution Width 14.5 % (11.8-14.3)
[2024-09-22 06:48] LABS: Anion Gap 12 (5-15); Carbon Dioxide 22 mmol/L (20-31); Chloride 106 mmol/L (98-107); Potassium 3.6 mmol/L (3.5-5.1); Sodium 140 mmol/L (136-145)
[2024-09-22 06:55] LABS: BUN/Creatinine Ratio 15.3 (10.0-20.0); Blood Urea Nitrogen 19 mg/dL (9-23); Glucose 127 mg/dL (74-106)
--- NOTE | 2024-09-22 13:22 | DVHPNRES ---
Progress Note Date Seen: Sep 22, 2024 Resident Creating Document: JEFFREY GARY RESIDENT Has the PT tested + for MRSA If YES, has PT been informed?: No Medical Necessity Reason Pt with a Central, PICC or Fol: No Subjective Review of Systems Beata Márquez is a 68-year-old female with past medical history of hypertension, diabetes, breast cancer status post right mastectomy in 2010, and C-sections x4 who presents to the ED with dysuria, generalized weakness, fever, chills, fatigue, and flu-like symptoms x3 days. Patient states that she ambulated to the room just a little bit ago. She also denies nausea and vomiting as well as cough. Patient states that she lives at home with her daughter as well as smokes 1 cigarette per week, denies use of drugs or drinking alcohol. Patient denies any recent trauma or injury, recent sick contacts, recent travels, recent ingestion of spoiled food, abdominal pain, nausea, vomiting, diarrhea, chest pain, shortness of breath, lightheadedness, dizziness, hematemesis, melena, hematuria, or hematochezia. 09/20/2024: UA: LE 3+, WBC 1841, 1+ nitrates, creat 1.6, abdominal pain improves, no fevers, AB will be downgraded to ceftriaxone, vanco + cefepime will be dc, 1 extra LT of fluids given 09/21/2024: blood culture positive for ecoli 09/22/2024: no fevers, continue IV AB until blood culture negative Objective vital signs Vital Sign Date Time Temp Pulse Resp B/P (MAP) Pulse Ox O2 Delivery O2 Flow Rate FiO2 09/22/24 09:45 128/70 09/22/24 09:00 99.0 80 18 96 99.0 09/22/24 08:00 Room Air* 0 21 Total Intake and Output 09/21/24 09/21/24 09/22/24 15:00 23:00 07:00 Intake Total 680 ml 1240 ml Output Total 680 ml Balance 0 ml 1240 ml medications Current Medications Medications Dose Ordered Sig/Triston Route Start Time Stop Time Status Last Admin Dose Admin Acetaminophen/ Hydrocodone Bitart 1 tab Q4HP PRN PO 09/19/24 12:15 Acetaminophen 650 mg Q6HP PRN PO 09/19/24 12:15 09/21/24 00:37 650 MG Folic Acid 1 mg DAILY PO 09/20/24 10:00 09/22/24 09:43 1 MG Magnesium Oxide 400 mg DAILY PO 09/20/24 10:00 09/22/24 09:43 400 MG Furosemide 40 mg DAILY IV 09/20/24 10:00 09/22/24 09:45 40 MG Ceftriaxone Sodium 50 ml @ 100 mls/hr DAILY@09 IV 09/20/24 15:15 09/22/24 09:43 100 MLS/HR Examination General Appearance: Alert, Oriented X3, Cooperative, No acute distress HEENT: Atraumatic, PERRLA, EOMI, Mucous membr. moist/pink Respiratory: Clear to auscultation, Normal air movement Cardiovascular: Normal S1, Normal S2 Abdominal: Normal bowel sounds, Soft Extremities: No clubbing, No cyanosis, No edema, Normal pulses Skin: No significant lesion Neuro: Normal speech, Strength at 5/5 X4 ext, Normal tone, Sensation intact Psych/Mental Status: Mental status NL, Mood NL laboratory and microbiology Laboratory Tests 09/22/24 05:37 Test 09/22/24 05:37 Range/Units Serum Glucose 127 H 74-106 mg/dL Microbiology Date/Time Source Procedure Growth Status 09/19/24 10:00 Voided Urine Urine Culture - Final Complete 09/19/24 06:57 Blood Blood Culture - Final Escherichia coli Complete Problem List/Assessment/Plan Problem List/Assessment/Plan #Sepsis due to bacteremia and complicated UTI #Bacteremia due to ecoli #Hypertension #Leukopenia, resolved: possible due to sepsis #Thrombocytopenia #Hyperbilirubinemia, resolving #SANIA due to VMN #Diabetes type 2 controlled #Tobacco use #History of breast cancer status post right mastectomy in 2010 at [facility] #History of C-sections x4 Plan Cardiac diet Blood culture positive: e coli 09/19/24 New blood cultures withdrawn yesterday IV ceftriaxone IV fluids given Blood cultures pending Chest x-ray normal UA: UTI Urine bacterial culture: pending Tylenol Hemoglobin A1c 5.5 Influenza test neg Home medications reconciled DVT prophylaxis-SCDs, no lovenox due to Thrombocytopenia PUD prophylaxis-not indicated no history of GERD or GI bleed Discussed plan of care with patient and nurse Counseled patient on cessation of tobacco use Case discussed with Dr Bass Plan discussed with: Patient, Other Date of Service: Sep 22, 2024 Billing Provider: ELMER BASS MD Common Visit Codes: [id number] INP/OBS CARE(HIGH) JEFFREY GARY RESIDENT Sep 22, 2024 13:22 ELMER BASS MD Sep 30, 2024 21:09
[2024-09-23] VITALS (8 sets, daily range): BP systolic 107–158; BP diastolic 55–70; PULSE 74–83; RESP 16–20; TEMP 97.2–98.2; O2SAT 94–97
[2024-09-23 05:57] LABS: Chloride 101 mmol/L (98-107); Potassium 3.7 mmol/L (3.5-5.1); Sodium 137 mmol/L (136-145)
[2024-09-23 05:58] LABS: Anion Gap 12 (5-15); Carbon Dioxide 24 mmol/L (20-31)
[2024-09-23 06:04] LABS: BUN/Creatinine Ratio 18.3 (10.0-20.0)
[2024-09-23 06:05] LABS: Blood Urea Nitrogen 26 mg/dL (9-23); Glucose 183 mg/dL (74-106)
[2024-09-23] MEDS: SODIUM CHLORIDE 0.9% 1,000 ML IV ONE (09:32)
--- NOTE | 2024-09-23 15:31 | DVHPNRES ---
Progress Note Date Seen: Sep 23, 2024 Resident Creating Document: JEFFREY GARY RESIDENT Has the PT tested + for MRSA If YES, has PT been informed?: No Medical Necessity Reason Pt with a Central, PICC or Fol: No Subjective Review of Systems Beata Márquez is a 68-year-old female with past medical history of hypertension, diabetes, breast cancer status post right mastectomy in 2010, and C-sections x4 who presents to the ED with dysuria, generalized weakness, fever, chills, fatigue, and flu-like symptoms x3 days. Patient states that she ambulated to the room just a little bit ago. She also denies nausea and vomiting as well as cough. Patient states that she lives at home with her daughter as well as smokes 1 cigarette per week, denies use of drugs or drinking alcohol. Patient denies any recent trauma or injury, recent sick contacts, recent travels, recent ingestion of spoiled food, abdominal pain, nausea, vomiting, diarrhea, chest pain, shortness of breath, lightheadedness, dizziness, hematemesis, melena, hematuria, or hematochezia. 09/20/2024: UA: LE 3+, WBC 1841, 1+ nitrates, creat 1.6, abdominal pain improves, no fevers, AB will be downgraded to ceftriaxone, vanco + cefepime will be dc, 1 extra LT of fluids given 09/21/2024: blood culture positive for ecoli 09/22/2024: no fevers, continue IV AB until blood culture negative 09/23/2024: blood cultures prelim negative 48h, order for HH IV AB placed Objective vital signs Vital Sign Date Time Temp Pulse Resp B/P (MAP) Pulse Ox O2 Delivery O2 Flow Rate FiO2 09/23/24 13:00 98.0 74 20 107/55 (72 94 98.0 09/23/24 08:00 Room Air* 0 21 Total Intake and Output 09/22/24 09/22/24 09/23/24 15:00 23:00 07:00 Intake Total 1500 ml 1840 ml Balance 1500 ml 1840 ml medications Current Medications Medications Dose Ordered Sig/Triston Route Start Time Stop Time Status Last Admin Dose Admin Acetaminophen/ Hydrocodone Bitart 1 tab Q4HP PRN PO 09/19/24 12:15 Acetaminophen 650 mg Q6HP PRN PO 09/19/24 12:15 09/23/24 04:11 650 MG Folic Acid 1 mg DAILY PO 09/20/24 10:00 09/23/24 09:30 1 MG Magnesium Oxide 400 mg DAILY PO 09/20/24 10:00 09/23/24 09:30 400 MG Ceftriaxone Sodium 50 ml @ 100 mls/hr DAILY@09 IV 09/20/24 15:15 09/23/24 09:30 100 MLS/HR Examination General Appearance: Alert, Oriented X3, Cooperative, No acute distress HEENT: Atraumatic, PERRLA, EOMI, Mucous membr. moist/pink Respiratory: Clear to auscultation, Normal air movement Cardiovascular: Normal S1, Normal S2 Abdominal: Normal bowel sounds, Soft Extremities: No clubbing, No cyanosis, No edema, Normal pulses Skin: No significant lesion Neuro: Normal speech, Strength at 5/5 X4 ext, Normal tone, Sensation intact Psych/Mental Status: Mental status NL, Mood NL laboratory and microbiology Laboratory Tests 09/23/24 05:13 09/22/24 05:37 Test 09/23/24 05:13 Range/Units Serum Glucose 183 H 74-106 mg/dL Microbiology Date/Time Source Procedure Growth Status 09/21/24 13:20 Blood Blood Culture - Preliminary NO GROWTH AFTER 48 HOURS OF INCUBATION. Resulted 09/19/24 10:00 Voided Urine Urine Culture - Final Complete Problem List/Assessment/Plan Problem List/Assessment/Plan #Sepsis due to bacteremia and complicated UTI #Bacteremia due to ecoli #Hypertension #Leukopenia, resolved: possible due to sepsis #Thrombocytopenia #Hyperbilirubinemia, resolving #SANIA due to VMN #Diabetes type 2 controlled #Tobacco use #History of breast cancer status post right mastectomy in 2010 at [facility] #History of C-sections x4 Plan Cardiac diet Blood culture positive: e coli 09/19/24 New blood cultures withdrawn yesterday IV ceftriaxone IV fluids given Blood cultures pending Chest x-ray normal UA: UTI Urine bacterial culture: pending Tylenol Hemoglobin A1c 5.5 Influenza test neg Home medications reconciled DVT prophylaxis-SCDs, no lovenox due to Thrombocytopenia PUD prophylaxis-not indicated no history of GERD or GI bleed Discussed plan of care with patient and nurse Counseled patient on cessation of tobacco use 09/23/2024: blood cultures prelim negative 48h, order for HH IV AB placed Case discussed with Dr Bass Plan discussed with: Patient, Other (rn) My Orders My Orders Orders - JEFFREY GARY RESIDENT Procedure Category Date Status Time * Secondary Spanish Teacher CONS 09/23/24 Transmitted Consult Insert Midline ORDERS 09/23/24 Transmitted 12:44 Dietary Evaluation Review Recommendations by RD: Dietary education by RD Comments: 1) Encourage optimal PO intake 2) Refer to outpatient RD/CDCES for weight management 3) Follow-up with cardiology 4) Continue to monitor I&O, labs, and skin integrity Expected Outcomes/Goals: 1) appetite and labs to improve 2) f/u in 3-5 days Date of Service: Sep 23, 2024 Billing Provider: ELMER BASS MD Common Visit Codes: [id number] INP/OBS CARE(HIGH) JEFFREY GARY RESIDENT Sep 23, 2024 15:31 ELMER BASS MD Sep 30, 2024 21:17
[2024-09-24 01:00] VITALS: BP 153/79; PULSE 81; RESP 18; TEMP 98.5; O2SAT 96
[2024-09-24 05:00] VITALS: BP 139/98; PULSE 86; RESP 18; TEMP 98.8; O2SAT 98
[2024-09-24 08:00] VITALS: PULSE 78; RESP 18
[2024-09-24 08:47] VITALS: BP 160/85; PULSE 78; RESP 16; TEMP 97.8; O2SAT 98
[2024-09-24] MEDS: LISINOPRIL 20 MG TAB PO SCH (10:22)
[2024-09-24 13:00] VITALS: BP_SYST 116; BP_SYST 151; BP_DIAS 75; PULSE 73; PULSE 77; RESP 16; TEMP 98; TEMP 98.2; O2SAT 94; O2SAT 98
--- NOTE | 2024-09-27 13:41 | DVHDSRES ---
Discharge Summary Date of Admission Resident Creating Document: JEFFREY GARY RESIDENT Sep 19, 2024 at 12:12 Date of Discharge: Sep 24, 2024 Admitting Diagnosis #Sepsis due to bacteremia and complicated UTI resolved Labs/Diagnostic Data: Laboratory Results Test 09/23/24 05:13 09/22/24 05:37 09/21/24 07:16 09/20/24 05:12 Sodium Level 137 mmol/L (136-145) Potassium Level 3.7 mmol/L (3.5-5.1) Chloride Level 101 mmol/L (98-107) Carbon Dioxide Level 24 mmol/L (20-31) Anion Gap 12 (5-15) Blood Urea Nitrogen 26 mg/dL (9-23) Creatinine 1.42 mg/dL (0.550-1.02) Glomerular Filtration Rate Calc 40 mL/min (>90) BUN/Creatinine Ratio 18.3 (10.0-20.0) Serum Glucose 183 mg/dL (74-106) Calcium Level 9.0 mg/dL (8.7-10.4) White Blood Count 4.0 10^3/uL (4.4-10.8) Red Blood Count 4.04 10^6/uL (4.0-5.20) Hemoglobin 12.2 g/dL (12.2-16.2) Hematocrit 34.7 % (36.0-46.0) Mean Corpuscular Volume 85.8 fL (80.0-100.0) Mean Corpuscular Hemoglobin 30.1 pg (28.0-32.0) Mean Corpuscular Hemoglobin Concent 35.1 g/dL (32.0-36.0) Red Cell Distribution Width 14.5 % (11.8-14.3) Platelet Count 65 10^3/uL (140-450) Mean Platelet Volume 9.8 fL (6.9-10.8) Neutrophils (%) (Auto) 74.8 % (37.0-80.0) Lymphocytes (%) (Auto) 16.0 % (10.0-50.0) Monocytes (%) (Auto) 8.3 % (0.0-12.0) Eosinophils (%) (Auto) 0.6 % (0.0-7.0) Basophils (%) (Auto) 0.3 % (0.0-2.0) Neutrophils # (Auto) 3.0 10 ^3/uL (1.6-8.6) Lymphocytes # (Auto) 0.6 10 ^3/uL (0.4-5.4) Monocytes # (Auto) 0.3 10 ^3/uL (0-1.3) Eosinophils # (Auto) 0 10 ^3/uL (0-0.8) Basophils # (Auto) 0 10 ^3/uL (0-0.2) Nucleated Red Blood Cells 0.0 % Troponin I High Sensitivity 3 ng/L (</=34) B-Type Natriuretic Peptide 207.16 pg/mL (0-100) Hemoglobin A1c 5.5 % A1C (<5.7) Total Bilirubin 1.3 mg/dL (0.2-1.0) Aspartate Amino Transferase (AST) 25 U/L (<34) Alanine Aminotransferase (ALT) 23 U/L (7-40) Alkaline Phosphatase 78 U/L (46-116) Total Protein 6.1 g/dL (5.7-8.2) Albumin 3.7 g/dL (3.2-4.8) Random Vancomycin Level 6.8 ug/mL (5-10) Test 09/19/24 12:57 09/19/24 10:15 09/19/24 10:00 09/19/24 06:57 Influenza Type A Antigen Negative (Negative) Influenza Type B Antigen Negative (Negative) Lactic Acid Level 1.3 mmol/L (0.4-2.0) Urine Color Light-orange (Yellow) Urine Clarity Ex.turbid (Clear) Urine pH 6.0 (5.0-9.0) Urine Specific Provencal 1.014 (1.001-1.035) Urine Protein 2+ (Negative) Urine Ketones Negative (Negative) Urine Blood 3+ /uL (Negative) Urine Nitrite 1+ (Negative) Urine Bilirubin Negative (Negative) Urine Urobilinogen Normal mg/dL (Negative) Urine Leukocyte Esterase 3+ /uL (Negative) Urine RBC 50 /hpf (0 - 4) Urine WBC Clumps Present /hpf (None Seen) Urine Microscopic WBC 1841 /HPF (0-5) Urine Squamous Epithelial Cells None seen /hpf (<5) Urine Bacteria None seen /hpf (None Seen) Urine Glucose 3+ mg/dL (Normal) Prothrombin Time 11.4 sec (9.3-11.8) Prothrombin Time INR 1.08 (0.9-1.15) Activated Partial Thromboplast Time 23.8 SEC (24.5-34.5) Other Laboratory Tests 09/23/24 05:13 09/22/24 05:37 Brief Hx & Hospital Course: Beata Márquez is a 68-year-old female with past medical history of hypertension, diabetes, breast cancer status post right mastectomy in 2010, and C-sections x4 who presents to the ED with dysuria, generalized weakness, fever, chills, fatigue, and flu-like symptoms x3 days. Patient states that she ambulated to the room just a little bit ago. She also denies nausea and vomiting as well as cough. Patient states that she lives at home with her daughter as well as smokes 1 cigarette per week, denies use of drugs or drinking alcohol. Patient denies any recent trauma or injury, recent sick contacts, recent travels, recent ingestion of spoiled food, abdominal pain, nausea, vomiting, diarrhea, chest pain, shortness of breath, lightheadedness, dizziness, hematemesis, melena, hematuria, or hematochezia. Hospital course 09/20/2024: UA: LE 3+, WBC 1841, 1+ nitrates, creat 1.6, abdominal pain improves, no fevers, AB will be downgraded to ceftriaxone, vanco + cefepime will be dc, 1 extra LT of fluids given 09/21/2024: blood culture positive for ecoli 09/22/2024: no fevers, continue IV AB until blood culture negative 09/23/2024: blood cultures prelim negative 48h, order for HH IV AB placed 09/24/2024: HH for IV AB was approved and patient was DC.Dapaglifozine was stopped due to UTI, patient should complete General Appearance: Alert, Oriented X3, Cooperative, No acute distress HEENT: Atraumatic, PERRLA, EOMI, Mucous membr. moist/pink Respiratory: Clear to auscultation, Normal air movement Cardiovascular: Normal S1, Normal S2 Abdominal: Normal bowel sounds, Soft Extremities: No clubbing, No cyanosis, No edema, Normal pulses Skin: No significant lesion Neuro: Normal speech, Strength at 5/5 X4 ext, Normal tone, Sensation intact Psych/Mental Status: Mental status NL, Mood NL Case discussed with Dr Bass Full code Operations or Procedures CHEST RADIOGRAPH Indication: Fever Technique: Single frontal view of the chest was obtained Comparison: None FINDINGS: Lines and Tubes: None Lungs: No focal consolidation. Pleura: No effusion. No pneumothorax. Cardiomediastinal contours: Unremarkable Bones: No acute osseous abnormality. IMPRESSION: 1. No acute cardiopulmonary disease. Condition at Discharge: Stable Final Diagnosis/Problems List #Sepsis due to bacteremia and complicated UTI resolved #Bacteremia due to ecoli resolved #Hypertension #Leukopenia, resolved: possible due to sepsis #Thrombocytopenia #Hyperbilirubinemia, resolving #SANIA due to VMN resolved #Diabetes type 2 controlled #Tobacco use #History of breast cancer status post right mastectomy in 2010 at [facility] #History of C-sections x4 Discharge Disposition: Home with Health Services Discharge Instruct/Medications Diet: Consistent carbohydrate, Cardiac 2g Na,low cholest Activity: Light activity Follow Up/Referral: [facility] Medications: home iv ab + see prescription, stop jardiance and furosemide Discharge Statement: "Patient was advised to return to the ER or call 911 if any headaches, dizziness, shortness of breath, chest pain, abdominal pain, bleeding, fevers, or worsening of medical condition. Patient was counseled about treatment plan, medications, possible side effects, patientverbalized understanding. All questions were answered to the best of my ability. This discharge took greater then 30 minutes in planning, reviewing documentation, counseling the patient, and discussing with other team members." ASSESSMENT ASSESSMENT Assessment bacteremia due to ecoli uti Date of Service: Sep 24, 2024 Billing Provider: ELMER BASS MD Common Visit Codes: [id number] DISCH DAY >30min JEFFREY GARY RESIDENT Sep 27, 2024 13:41 ELMER BASS MD Sep 30, 2024 22:12
== END 2024-09-24 17:34 | disposition home health service (06) | DRG 871 ==
LOC: EDBD 06:11 → ER 06:11 → OVERFLOW 12:12 → EAST 16:19
PROVIDERS: ADMIT Student in an Organized Health Care Education/Training Program; ATTEND Student in an Organized Health Care Education/Training Program
PROC: 05HA33Z Insertion of Infusion Device into Left Brachial Vein, Percutaneous Approach (ICD-10-PCS; principal; 2024-09-23)
PROC: B54NZZA Ultrasonography of Left Upper Extremity Veins, Guidance (ICD-10-PCS; 2024-09-23)
DX: A41.51 Sepsis due to Escherichia coli [E. coli] (principal); N17.0 Acute kidney failure with tubular necrosis; N39.0 Urinary tract infection, site not specified; D69.6 Thrombocytopenia, unspecified; E80.6 Other disorders of bilirubin metabolism; E11.9 Type 2 diabetes mellitus without complications; I10 Essential (primary) hypertension; Z85.3 Personal history of malignant neoplasm of breast; Z90.11 Acquired absence of right breast and nipple; Z79.899 Other long term (current) drug therapy
CPT/HCPCS: 36415; 71045; 80048; 80053; 80202; 81001; 83036; 83605; 83880; 84484; 85025; 85610; 85730; 87040; 87077; 87086; 87186; 87804; 96365; 99291; G0378